=== PATIENT | male | born 1980 | race American Indian/Alaskan Native ===

== ENCOUNTER 2021-07-17 11:13 | Emergency (ER) | payer OTHER ==
[2021-07-17 11:27] VITALS: BP 141/98
[2021-07-17] MEDS ORDERED: IBUPROFEN 600 MG TAB PO ONE (11:31)
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
== END 2021-07-17 12:43 | disposition home or self-care (01) ==
LOC: ED 11:13
DX: M54.6 Pain in thoracic spine (principal); M54.50 Low back pain, unspecified; V89.2XXA Person injured in unspecified motor-vehicle accident, traffic, initial encounter; Y93.89 Activity, other specified; Y92.488 Other paved roadways as the place of occurrence of the external cause; Y99.8 Other external cause status
CPT/HCPCS: 72070; 72100; 99283

== ENCOUNTER 2021-09-25 07:54 | Emergency (ER) | payer OTHER ==
[2021-09-25 08:04] VITALS: BP 137/92
[2021-09-25] MEDS ORDERED: LIDOCAINE-MPF (1%) 10 MG/1 ML VIAL 5 ML INFILTRATI ONE (11:03)
--- NOTE | 2021-09-25 11:07 | Emergency Department Report ---
ED Male HPI - General Chief complaint: Urogenital-Male Stated complaint: I THINK STD Time Seen by Provider: 09/25/21 11:02 Source: patient Mode of arrival: Ambulatory Limitations: No Limitations - History of Present Illness Initial comments: Patient is a 41-year-old male presents emergency room complaints of white penile discharge that began a couple of days ago. He has associated mild dysuria and states he has some irritation to the tip of the penis. He denies any fever, nausea, vomiting, diarrhea, hematuria, urinary retention, pain or swelling the testicles, lesions or blisters. patient states he was recently sexually active. Patient has a past medical history of HIV and reports that he is undetectable. No allergies to medications. - Related Data Previous Rx's Medication Instructions Recorded Last Taken Type Cyclobenzaprine [Flexeril] 10 mg PO TID PRN #12 tablet 07/17/21 Unknown Rx Ibuprofen [Motrin 600 MG tab] 600 mg PO Q8H PRN #20 tablet 07/17/21 Unknown Rx Doxycycline Hyclate [Doxycycline 100 mg PO BID 7 Days #14 tab 09/25/21 Unknown Rx Hyclate TAB] Allergies Allergy/AdvReac Type Severity Reaction Status Date / Time No Known Allergies Allergy Unverified 07/17/21 11:22 ED Review of Systems ROS: Stated complaint: I THINK STD Other details as noted in HPI Comment: All other systems reviewed and negative ED Past Medical Hx - Medications Home Medications: Home Medications Medication Instructions Recorded Confirmed Last Taken Type Cyclobenzaprine [Flexeril] 10 mg PO TID PRN #12 tablet 07/17/21 Unknown Rx Ibuprofen [Motrin 600 MG tab] 600 mg PO Q8H PRN #20 tablet 07/17/21 Unknown Rx Doxycycline Hyclate [Doxycycline 100 mg PO BID 7 Days #14 tab 09/25/21 Unknown Rx Hyclate TAB] ED Physical Exam - General Limitations: No Limitations General appearance: alert, in no apparent distress - Head Head exam: Present: atraumatic, normocephalic - Eye Eye exam: Present: normal appearance - ENT ENT exam: Present: mucous membranes moist - GI/Abdominal GI/Abdominal exam: Present: soft. Absent: distended, tenderness, guarding, rebound, rigid, hernia - exam: Present: other (neighborhood worker: Marni, cardroom attendant, no lesions or blisters, no scrotal edema, no testicular or epididymal tenderness, no erythema or edema of the glans penis, normal testicular lie, normal cremasteric relfex) - Neurological Exam Neurological exam: Present: alert, oriented X3 - Psychiatric Psychiatric exam: Present: normal affect, normal mood - Skin Skin exam: Present: warm, dry, intact ED Course Vital Signs 09/25/21 08:01 Temperature 98.8 F Pulse Rate 95 H Respiratory 15 Rate Blood Pressure 137/92 O2 Sat by Pulse 100 Oximetry ED Medical Decision Making - Lab Data Lab Results 09/25/21 Range/Units 11:24 Urine Color [place] (Yellow) Urine Turbidity Clear (Clear) Urine pH 5.0 (5.0-7.0) Ur Specific [place] 1.026 (1.003-1.030) Urine Protein <15 mg/dl (Negative) mg/dL Urine Glucose (UA) Neg (Negative) mg/dL Urine Ketones Tr (Negative) mg/dL Urine Blood Neg (Negative) Urine Nitrite Neg (Negative) Urine Bilirubin Neg (Negative) Urine Urobilinogen 2.0 (<2.0) mg/dL Ur Leukocyte Esterase Neg (Negative) Urine WBC (Auto) 4.0 (0.0-6.0) /HPF Urine RBC (Auto) 3.0 (0.0-6.0) /HPF U Epithel Cells (Auto) < 1.0 (0-13.0) /HPF Urine Mucus 3+ /HPF - Medical Decision Making Patient is a 41-year-old male presents emergency room complaints of white penile discharge that began a couple of days ago. He has associated mild dysuria and states he has some irritation to the tip of the penis. He denies any fever, nausea, vomiting, diarrhea, hematuria, urinary retention, pain or swelling the testicles, lesions or blisters. patient states he was recently sexually active. Patient has a past medical history of HIV and reports that he is undetectable. No allergies to medications. Vitals are stable. On exam:neighborhood worker: Marni, cardroom attendant, no lesions or blisters, no scrotal edema, no testicular or epididymal tenderness, no erythema or edema of the glans penis, normal testicular lie, normal cremasteric relfex. UA and GC sent from patient's urine. UA is normal. Symptoms are likely consistent with uncomplicated STD. Patient given 500 mg IM Rocephin while in the emergency department and given prescription for doxycycline. Advised patient to please take medication as prescribed to completion. Follow-up with a primary care doctor or a clinic in order to have a full STD panel performed. Have any partner tested and treated as well. Avoid sexual intercourse. Return to emergency room for any new or worsening symptoms. Critical care attestation.: If time is entered above; I have spent that time in minutes in the direct care of this critically ill patient, excluding procedure time. ED Disposition Clinical Impression: Dysuria, Penile discharge, Concern about STD in male without diagnosis Disposition: 01 HOME / SELF CARE / HOMELESS Is pt being admited?: No Does the pt Need Aspirin: No Condition: Stable Instructions: Safe Sex Additional Instructions: please take medication as prescribed to completion. Follow-up with a primary care doctor or a clinic in order to have a full STD panel performed. Have any partner tested and treated as well. Avoid sexual intercourse. Return to emergency room for any new or worsening symptoms. walk in clinic: [facility] Address: [address] [place] [id number] Prescriptions: Doxycycline Hyclate [Doxycycline Hyclate TAB] 100 mg PO BID 7 Days #14 tab Referrals: [facility] [Outside] - 3-5 Days [facility] [Provider Group] - 3-5 Days Time of Disposition: 11:06 Print Language: K[place]
[2021-09-25 11:39] LABS: Bilirubin,Urine NEG (Negative); Blood,Urine NEG (Negative); Color,Urine Amber (Yellow); Mucus,Urine 3+ /HPF; Protein,Urine <15 mg/dL mg/dL (Negative)
== END 2021-09-25 11:47 | disposition home or self-care (01) ==
LOC: ED 07:54
DX: R30.0 Dysuria (principal); R36.9 Urethral discharge, unspecified; A64 Unspecified sexually transmitted disease
CPT/HCPCS: 81001; 87591; 96372; 99283; J0696; J3490